=== PATIENT | female | born 1990 | race Caucasian/White ===

== ENCOUNTER 2023-03-20 18:58 | Emergency (ER) | payer MEDICAID ==
[~2023-03-20] VITALS: Ht 165.1 cm; Wt 127.3 kg
[~2023-03-20 18:58] MED LIST: AZITTAB11 OR; CIP03OS OP
[2023-03-20 20:39] LABS: Alanine Aminotransferase 20 U/L (7-40); Albumin 3.8 g/dL (3.2-4.8); Alkaline Phosphatase 88 U/L (46-116); Anion Gap 9 (5-15); Aspartate Aminotransferase 15 U/L (13-40); BUN/Creatinine Ratio 20.8 (10.0-20.0); Bilirubin, Total 0.4 mg/dL (0.2-1.0); Blood Urea Nitrogen 16 mg/dL (9-23); Calcium 9.1 mg/dL (8.7-10.4); Carbon Dioxide 22 mmol/L (20-30); Chloride 108 mmol/L (98-107); Glucose 94 mg/dL (74-106); Sodium 139 mmol/L (136-145); Total Protein 6.1 g/dL (5.7-8.2)
[2023-03-20 20:40] LABS: Basophils # (auto) 0.1 10 ^3/uL (0-0.2); Eosinophils # (auto) 0.1 10 ^3/uL (0-0.8); Mean Corpuscular Hgb Conc. 32.7 g/dL (32.0-36.0)
[2023-03-20 20:41] LABS: Basophils % (auto) 0.3 % (0.0-2.0); Eosinophils % (auto) 0.6 % (0.0-7.0); Hematocrit 37.8 % (36.0-46.0); Hemoglobin 12.4 g/dL (12.2-16.2); Lymphocytes % (auto) 12.4 % (10.0-50.0); Mean Corpuscular Hemoglobin 26.4 pg (28.0-32.0); Mean Corpuscular Volume 80.8 fL (80.0-100.0); Monocytes # (auto) 1.3 10 ^3/uL (0-1.3); Monocytes % (auto) 8.1 % (0.0-12.0); Neutrophils % (auto) 78.6 % (37.0-80.0); Red Blood Cells 4.68 10^6/uL (4.0-5.20); Red Cell Distribution Width 15.8 % (11.8-14.3); White Blood Cell 16.6 10^3/uL (4.4-10.8)
[2023-03-21] MEDS ORDERED: HYDROcodone-ACET 5/325MG TAB PO ONE (03:30)
[2023-03-21] MEDS ORDERED: HYDROcodone-ACET 10/325MG TAB PO ONE (03:30)
[2023-03-21 04:00] LABS: Urine Bacteria NONE SEEN /hpf (None Seen); Urine Blood 3+ /uL (Negative); Urine Clarity Clear (Clear); Urine Color Yellow (Yellow); Urine Mucus FEW (None Seen); Urine Protein, UAD Negative (Negative); Urine Specific Gravity 1.017 (1.001-1.035); Urine Urobilinogen Normal (Negative); Urine WBC 30 /hpf (0 - 5); Urine pH 5.5 (5.0-8.0)
[2023-03-21] MEDS ORDERED: cefTRIAXone SOD 1,000 MG VL IM ONE (05:30)
[2023-03-21 05:46] VITALS: BP 148/88; PULSE 66; RESP 14; TEMP 98.2; O2SAT 99
== END 2023-03-21 05:54 | disposition home or self-care (01) ==
LOC: EDBD 18:58 → ER 18:58
DX: N39.0 Urinary tract infection, site not specified (principal); D72.829 Elevated white blood cell count, unspecified; R55 Syncope and collapse; R10.2 Pelvic and perineal pain; Z79.899 Other long term (current) drug therapy
CPT/HCPCS: 36415; 70450; 71045; 80053; 81001; 84484; 84702; 85025; 93005; 96372; 99285; J0696

== ENCOUNTER 2025-04-14 20:28 | Inpatient (IN) | payer MEDICAID ==
[~2025-04-14] VITALS: Ht 165.1 cm; Wt 135.4 kg
[~2025-04-14 20:28] MED LIST changes: +CHOL1TAB30 PO; +LISI10TA34 PO; +TIRZ5INJ2 SC
[2025-04-14 22:45] LABS: Hematocrit 42.6 % (36.0-46.0); Hemoglobin 14.0 g/dL (12.2-16.2); Mean Corpuscular Hemoglobin 27.3 pg (28.0-32.0); Mean Corpuscular Volume 82.9 fL (80.0-100.0); Nucleated Red Blood Cells % 0.1 %
[2025-04-14 23:08] LABS: Alanine Aminotransferase 36 U/L (7-40); Albumin 4.1 g/dL (3.2-4.8); Alkaline Phosphatase 102 U/L (46-116); Anion Gap 13 (5-15); BUN/Creatinine Ratio 14.3 (10.0-20.0); Blood Urea Nitrogen 10 mg/dL (9-23); Calcium 9.4 mg/dL (8.7-10.4); Carbon Dioxide 20 mmol/L (20-31); Chloride 107 mmol/L (98-107); Glucose 89 mg/dL (74-106); Lipase 42 U/L (12-53); Potassium 4.1 mmol/L (3.5-5.1); Sodium 140 mmol/L (136-145); Total Protein 7.3 g/dL (5.7-8.2)
[2025-04-14 23:09] LABS: Bilirubin, Total 0.4 mg/dL (0.2-1.0)
--- NOTE | 2025-04-15 00:01 | DVH ---
INDICATION: epig pain TECHNIQUE: Multiple real-time sonographic images were obtained of the right upper quadrant. COMPARISON: None FINDINGS: The liver demonstrates normal homogeneous echotexture without focal mass lesions. The liver measures 16.3 cm. Normal hepatopetal portal venous flow identified. No evidence of pleural effusion or abdominal ascites. There is no intrahepatic or extrahepatic ductal dilatation. The common duct measures 0.3 cm. 2.6 x 2.1 x 0.6 cm echogenic shadowing structure within the neck of the gallbladder. Multiple non echogenic shadowing structures identified within the gallbladder body. The gallbladder wall measures 0.3 cm and is within normal limits. Negative sonographic Hunt's sign. The right kidney measures 10.1 cm. The right kidney is normal in contour, size, and shape. The echogenicity is normal. There is no hydronephrosis. The pancreas is not well visualized due to overlying bowel gas. IMPRESSION: 1. Cholelithiasis without sonographic evidence of acute cholecystitis.
[2025-04-15] MEDS: SODIUM CHLORIDE 0.9% 1,000 ML IV ONE (00:15)
--- NOTE | 2025-04-15 00:28 | DVH ---
CHEST RADIOGRAPH Indication: epig pain Technique: Single frontal view of the chest was obtained COMPARISON: XY CHEST XRAY 1 VIEW on DOS: 03/20/23 FINDINGS: Lines and Tubes: None Lungs: Clear Pleura: No effusion. No pneumothorax. Cardiomediastinal contours: Unremarkable Bones: Unremarkable IMPRESSION: 1. No acute disease.
--- NOTE | 2025-04-15 00:44 | ED.PDOC ---
GI ASSESSMENT HPI Comments Patient is a 35-year-old female with past medical history of hypertension, cholelithiasis, questionable hepatosplenomegaly, who comes in due to midepigastric abdominal pain. According to the patient, the pain started about 10:00 p.m. on 12/13/2024, she localizes the pain to the midepigastrium with radiation to the right upper quadrant, 10/10 at the time of onset, sharp without any exacerbating or relieving factors and associated with nausea. Denies similar symptoms in the past. On review of systems patient is complaining of nausea and abdominal pain. Past medical history: Hypertension, cholelithiasis, hepatosplenomegaly in the past Past surgical history: Denies Home medications: Lisinopril, Zepbound, ibuprofen Social & Personal history: Denies smoking, alcohol, drugs. Lives at home. Allergies: Denies Patient seen and examined at bedside. Patient is alert and oriented to time, place person and responding to all questions. Eyes: No Pain, No Vision change, No Conjunctivae inflammation, No Eyelid inflammation, No Other, No Redness ENT: No Ear pain, No Ear discharge, No Nose pain, No Nose discharge, No Nose congestion, No Mouth pain, No Mouth swelling, No Throat pain, No Throat swelling, No Other Cardiovascular: No Chest Pain, No Palpitations, No Orthopnea, No Paroxysmal No Dyspnea, No Edema, No Lt Headedness, No Other Respiratory: No Cough, No Dry, No Shortness of breath, No SOB with exertion, No Wheezing, No Hemoptysis, No Pleuritic Pain, No Sputum, No Other Gastrointestinal: Nausea, No Vomiting, Abdominal Pain, No Diarrhea, No Constipation, No Melena, No Hematochezia, No Other Genitourinary: No Dysuria, No Frequency, No Incontinence, No Hematuria, No Retention, No Other Musculoskeletal: No other, No neck pain, No shoulder pain, No arm pain, No back pain, No hand pain, No leg pain, No foot pain Skin: No Rash, No Lesions, No Jaundice, No Bruising, No Other Attestation note: Dr. Hudson: I was the supervising attending for this ED encounter. Please see the resident's notes. I was available for questions and consultations. Differential diagnosis: DDX include Diverticulitis, colitis, gastroenteritis, acute abdomen, SBO, enteritis, constipation, volvulus, appendicitis, Gallbladder disease, choledocolithiasis, ascending cholangitis, pancreatitis, intraAbdominal mass/ne oplasm, hepatitis, UTI, pylonephritis, kidney stone, aneurysm, dissection, Inflammatory bowel disease, gastroparesis, ischemic bowel,,,,,, Food poisoning, bacterial/parasitic/viral etiology, trauma, diabetes DKA, ovarian torsion, ovarian cyst/mass, tubo-ovarian abscess, , ectopic , PID, STD. MDM: MDM: patient presented with the above HPI.---abdominal pain---workup was initiated. patient was found with the above mentioned diagnosis. the following medications were ordered: please refer to order lists of meds and tests obtained by myself Dr. Hduson. Patient ED course and VS have been stabilized. Patient has been reassessed in the ED and remained in a stable condition. Pertinent incidental findings were discussed with the patient and/or family. Patient/family voices understanding and is agreeable with plan. Patient has been observed in the ED adequate length of time to insure improvement/stability. Escalation of care considered: Consideration of escalation to observation or admission Sepsis protocol was initiated. Patient was given Zosyn. Fluids. Zofran. GI cocktail. Patient was ADMITTED to the medicine team for further evaluation and treatment of their presentation. All the reports of any imaging studies that were ordered by myself were reviewed by myself. Chief Complaint: Abdominal Pain Time Seen by MD: 23:45 Primary Care Provider: MELLISSA MAGAÑA Reviewed Notes: Allergies Allergies: Coded Allergies: NO KNOWN ALLERGIES (Unverified , 03/10/12) Home Meds Reported Medications Tirzepatide (Zepbound) 5 Mg/0.5 Ml Inj, 5 MG SC QWEEKLY for 28 Days, #2 04/16/25 Cholecalciferol (Gnp Vitamin D) 1,000 Unit Tab, 1 TAB PO DAILY for 30 Days, #30 04/16/25 Lisinopril (Lisinopril) 10 Mg Tab, 1 TAB PO DAILY for 30 Days, #30 04/16/25 Information Source: Patient Mode of Arrival: Ambulatory Past Medical History PAST MEDICAL HISTORY: Denies Past Medical History (Contd): Hypertension, cholelithiasis, hepatosplenomegaly Surgical History: Denies all surgeries 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 Family History Family History: Reviewed,noncontributory to illness Social History Smoker: Non-Smoker Alcohol: Denies ETOH Use Drugs: Denies Drug Use Lives In: Home Constitutional: denies: chills, diaphoresis, fatigue, fever, malaise, sweats, weakness, others EENTM: denies: blurred vision, double vision, ear bleeding, ear discharge, ear drainage, ear pain, ear ringing, eye pain, eye redness, hearing loss, mouth pain, mouth swelling, nasal discharge, nose bleeding, nose congestion, nose pain, photophobia, tearing, throat pain, throat swelling, voice changes, others Respiratory: denies: cough, hemoptysis, orthopnea, SOB at rest, shortness of breath, SOB with excertion, stridor, wheezing, others Cardiovascular: denies: chest pain, dizzy spells, diaphoresis, Dyspnea on exertion, edema, irregular heart beat, left arm pain, lightheadedness, palpitations, PND, syncope, others Gastrointestinal: reports: abdominal pain, nausea; denies: abdomen distended, blood streaked bowels, constipated, diarrhea, dysphagia, difficulty swallowing, hematemesis, melena, poor appetite, poor fluid intake, rectal bleeding, rectal pain, vomiting, others Genitourinary: denies: abnormal vagina bleeding, burning, dyspareunia, dysuria, flank pain, frequency, hematuria, incontinence, pain, , vagina discharge, urgency, others Neurological: denies: dizziness, fainting, headache, left sided numbness, left sided weakness, numbness, paresthesia, pre-existing deficit, right sided numbness, right sided weakness, seizure, speech problems, tingling, tremors, weakness, others Musculoskeletal: denies: back pain, gout, joint pain, joint swelling, muscle pain, muscle stiffness, neck pain, others Integumetry: denies: bruises, change in color, change in hair/nails, dryness, laceration, lesions, lumps, rash, wounds, others Allergic/Immunocompromised: denies: Difficulty Healing, Frequent Infections, Hives, Itching, others Hematologic/Lymphatic: denies: anemia, blood clots, easy bleeding, easy bruising, swollen glands, others Endocrine: denies: excessive hunger, excessive sweating, excessive thirst, excessive urination, flushing, intolerance to cold, intolerance to heat, unexplained weight gain, unexplained weight loss, others Psychiatric: denies: anxiety, bipolar disorder, depression, hopeless, panic disorder, schizophrenia, sleepless, suicidal, others Physical Exam General Appearance: Mild Distress HEENT: Normal ENT Inspection, PERRL/EOMI Neck: Non-Tender, Normal, Normal Inspection Respiratory: Lungs Clear, No Accessory Muscle Use, No Respiratory Distress Cardiovascular: No JVD, No Murmur, No Gallop, Tachycardia Breast Exam: Deferred Gastrointestinal: Epigastric, No Pulsatile Mass, Normal Bowel Sounds, RUQ, Tenderness Genitalia: Deferred Pelvic: Deferred Rectal: Rectal Exam not done Extremities: No calf tenderness, Normal capillary refill, Normal inspection, Normal range of motion, Non-tender, No pedal edema Neurologic: Alert, No Motor Deficits, Normal Mood, No Sensory Deficits Cerebellar Function: NOT DONE Reflexes: NOT DONE Skin: Dry, Normal Color, Warm Peripheral Pulses: 2+ dorsalis pedis (R), 2+ dorsalis pedis (L) Lymphatic: NOT DONE Was a procedure done? Was a procedure done?: No GI differential Dx Differential Diagnosis: Cholecystitis, Diverticular disease, Gastritis/PUD, Gastroenteritis X-Ray, Labs, Meds, VS Vital Signs Date Time Temp Pulse Resp B/P (MAP) Pulse Ox O2 Delivery O2 Flow Rate FiO2 04/14/25 20:47 97.8 11 24 151/88 98 97.8 04/14/25 20:36 113 Lab Test 04/15/25 01:15 04/15/25 00:50 04/14/25 22:46 04/14/25 20:45 Range/Units Urine Color Yellow Yellow Urine Clarity Turbid H Clear Urine pH 8.5 5.0-9.0 Urine Specific [place] 1.027 1.001-1.035 Urine Protein 1+ H Negative Urine Ketones Negative Negative Urine Blood Negative Negative /uL Urine Nitrite Negative Negative Urine Bilirubin Negative Negative Urine Urobilinogen 2 H Negative mg/dL Urine Leukocyte Esterase Negative Negative /uL Urine RBC 8 0 - 4 /hpf Urine Microscopic WBC < 1 0-5 /HPF Urine Squamous Epithelial Cells Few <5 /hpf Urine Amorphous Crystals Few None Seen /hpf Urine Bacteria None seen None Seen /hpf Urine Glucose Normal Normal mg/dL Urine Test Negative Negative Urine Opiates Screen Neg NEGATIVE Urine Fentanyl Screen Neg NEGATIVE Urine Barbiturates Screen Neg NEGATIVE Urine Phencyclidine Screen Neg NEGATIVE Urine Amphetamines Screen Neg NEGATIVE Urine Benzodiazepines Screen Neg NEGATIVE Urine Cocaine Screen Neg NEGATIVE Urine Cannabinoids Screen Neg NEGATIVE Lactic Acid Level 1.6 2.8 *H 0.4-2.0 mmol/L Troponin I High Sensitivity < 3 L < 3 L < 3 L </=34 ng/L White Blood Count 14.2 H 4.4-10.8 10^3/uL Red Blood Count 5.14 4.0-5.20 10^6/uL Hemoglobin 14.0 12.2-16.2 g/dL Hematocrit 42.6 36.0-46.0 % Mean Corpuscular Volume 82.9 80.0-100.0 fL Mean Corpuscular Hemoglobin 27.3 L 28.0-32.0 pg Mean Corpuscular Hemoglobin Concent 32.9 32.0-36.0 g/dL Red Cell Distribution Width 15.1 H 11.8-14.3 % Platelet Count 354 140-450 10^3/uL Mean Platelet Volume 7.7 6.9-10.8 fL Neutrophils (%) (Auto) 64.6 37.0-80.0 % Lymphocytes (%) (Auto) 26.4 10.0-50.0 % Monocytes (%) (Auto) 7.0 0.0-12.0 % Eosinophils (%) (Auto) 1.0 0.0-7.0 % Basophils (%) (Auto) 1.0 0.0-2.0 % Neutrophils # (Auto) 9.2 H 1.6-8.6 10 ^3/uL Lymphocytes # (Auto) 3.7 0.4-5.4 10 ^3/uL Monocytes # (Auto) 1.0 0-1.3 10 ^3/uL Eosinophils # (Auto) 0.1 0-0.8 10 ^3/uL Basophils # (Auto) 0.1 0-0.2 10 ^3/uL Nucleated Red Blood Cells 0.1 % Sodium Level 140 136-145 mmol/L Potassium Level 4.1 3.5-5.1 mmol/L Chloride Level 107 98-107 mmol/L Carbon Dioxide Level 20 20-31 mmol/L Anion Gap 13 5-15 Blood Urea Nitrogen 10 9-23 mg/dL Creatinine 0.70 0.550-1.02 mg/dL Glomerular Filtration Rate Calc 114 >90 mL/min BUN/Creatinine Ratio 14.3 10.0-20.0 Serum Glucose 89 74-106 mg/dL Calcium Level 9.4 8.7-10.4 mg/dL Total Bilirubin 0.4 0.2-1.0 mg/dL Aspartate Amino Transferase (AST) 64 H 13-40 U/L Alanine Aminotransferase (ALT) 36 7-40 U/L Alkaline Phosphatase 102 46-116 U/L Total Protein 7.3 5.7-8.2 g/dL Albumin 4.1 3.2-4.8 g/dL Lipase 42 12-53 U/L Microbiology Date/Time Source Procedure Growth Status 04/15/25 01:28 Blood Blood Culture - Preliminary Resulted 04/15/25 01:27 Blood Blood Culture - Preliminary Resulted [place] [address] Ph: [phone] DIAGNOSTIC IMAGING Diagnostic Imaging Report : [id number] Signed PATIENT: DEENA EDOUARD ACCT: [id number] UNIT: [id number] : 1990 LOC: ER ROOM / BED: / AGE / SEX: 35 / F ADM STATUS: REG ER SERVICE 29 ORDERING PHYSICIAN: ALIE HUDSON DO PROCEDURE(s): CXRP - CHEST PORTABLE REASON: epig pain ORDER NUMBER(s): [id number], ACCESSION NUMBER(s): [id number] CHEST RADIOGRAPH Indication: epig pain Technique: Single frontal view of the chest was obtained COMPARISON: XY CHEST XRAY 1 VIEW on DOS: 03/20/23 FINDINGS: Lines and Tubes: None Lungs: Clear Pleura: No effusion. No pneumothorax. Cardiomediastinal contours: Unremarkable Bones: Unremarkable IMPRESSION: 1. No acute disease. ATED BY: AROLDO PALOMO MD DICTATED DATE/TIME: 04/15/2524 SIGNED BY: AROLDO PALOMO MD SIGNED DATE/TIME: 04/15/2524 CC: [place] [address] Ph: [phone] DIAGNOSTIC IMAGING Diagnostic Imaging Report : [id number] Signed PATIENT: DEENA EDOUARD ACCT: [id number] UNIT: [id number] : 1990 LOC: ER ROOM / BED: / AGE / SEX: 35 / F ADM STATUS: REG ER SERVICE 2230 ORDERING PHYSICIAN: ALIE HUDSON DO PROCEDURE(s): ABDL - ABDOMEN LIMITED REASON: epig pain ORDER NUMBER(s): [id number], ACCESSION NUMBER(s): [id number] INDICATION: epig pain TECHNIQUE: Multiple real-time sonographic images were obtained of the right upper quadrant. COMPARISON: None FINDINGS: The liver demonstrates normal homogeneous echotexture without focal mass lesions. The liver measures 16.3 cm. Normal hepatopetal portal venous flow identified. No evidence of pleural effusion or abdominal ascites. There is no intrahepatic or extrahepatic ductal dilatation. The common duct measures 0.3 cm. 2.6 x 2.1 x 0.6 cm echogenic shadowing structure within the neck of the gallbladder. Multiple non echogenic shadowing structures identified within the gallbladder body. The gallbladder wall measures 0.3 cm and is within normal limits. Negative sonographic Hunt's sign. The right kidney measures 10.1 cm. The right kidney is normal in contour, size, and shape. The echogenicity is normal. There is no hydronephrosis. The pancreas is not well visualized due to overlying bowel gas. IMPRESSION: 1. Cholelithiasis without sonographic evidence of acute cholecystitis. ATED BY: AROLDO PALOMO MD DICTATED DATE/TIME: 04/14/252358 SIGNED BY: AROLDO PALOMO MD SIGNED DATE/TIME: 04/14/252358 CC: [place] [address] Ph: [phone] DIAGNOSTIC IMAGING Diagnostic Imaging Report : [id number] Signed PATIENT: DEENA EDOUARD ACCT: [id number] UNIT: [id number] : 1990 LOC: EAST ROOM / BED: 0250 / B AGE / SEX: 35 / F ADM STATUS: ADM IN SERVICE 0700 ORDERING PHYSICIAN: HOME RODRIGUEZ PROCEDURE(s): ABPL - CT AB PEL WO CON-NO ORAL OR IV REASON: Left lower quadrant pain ORDER NUMBER(s): [id number], ACCESSION NUMBER(s): [id number] CLINICAL HISTORY: Left lower quadrant pain TECHNIQUE: CT of the abdomen and pelvis was performed without IV contrast. This exam was performed according to our departmental dose optimization program. Up-to-date CT equipment and radiation dose reduction techniques are utilized as appropriate. CTDI 27 DLP 1400 COMPARISON: None FINDINGS: Abdomen/Pelvis: The spleen, pancreas, adrenal glands, liver, kidneys, and bladder are grossly unremarkable. There is a 2.6 cm gallstone. There are numerous uterine masses, compatible with uterine fibroids The abdominal aorta is normal in course and caliber. There are no significant atherosclerotic calcifications. There is no free intraperitoneal air or fluid. There is no enlarged abdominal pelvic lymph node. There is no bowel wall thickening or dilatation. The appendix is normal. There is a small fat containing umbilical hernia. Other: The imaged lower thorax is unremarkable. No acute osseous abnormality is evident. IMPRESSION: No acute noncontrast CT abnormality in the abdomen / pelvis. Fibroid uterus. 2.6 cm gallstone. ATED BY: SOFIE VELASQUEZ MD DICTATED DATE/TIME: 04/17/25946 SIGNED BY: SOFIE VELASQUEZ MD SIGNED DATE/TIME: 04/17/25946 CC: Time of 1ST Reevaluation: 00:45 Reevaluation 1ST: Unchanged Patient Education/Counseling: Diagnosis, Treatment, Prognosis, Need For Follow Up Family Education/Counseling: Diagnosis, Treatment, Prognosis, Need For Follow Up SEPSIS Sepsis Screen Date sepsis recognized/suspect: Apr 14, 2025 Time Sepsis recognized/suspect: 2049 Recent Procedure: No On Antibiotic Therapy: No Respiratory Rate >20: No Heart Rate >90: No Temp<36 C (96.8 F) or >38.3 C: No SBP <90 or MAP <65 mmHG: No New Acute Mental Status Change: No Is the patient on CPAP, BIPAP,: No Physician Orders Electrocardigram (04/14/25 20:46) Electrocardigram (04/14/25 21:46) Electrocardigram (04/14/25 23:46) [employer] (04/14/25 ) Chest Portable (04/14/25 22:30) Abdomen Limited (04/14/25 22:30) Blood Culture (04/15/25 01:00) Notify Md If Map <65 Or Bp<90 (04/15/25 01:00) If Map<65 Start Vasopressor (04/15/25 01:00) Sepsis Reassesment After Fluid (04/15/25 02:00) Vital Signs Date Time Temp Pulse Resp B/P (MAP) Pulse Ox O2 Delivery O2 Flow Rate FiO2 04/14/25 20:47 97.8 11 24 151/88 98 97.8 04/14/25 20:36 113 Laboratory Tests Test 04/14/25 20:45 04/15/25 00:50 Lactic Acid Level 2.8 mmol/L (0.4-2.0) *H 1.6 mmol/L (0.4-2.0) White Blood Count 14.2 10^3/uL (4.4-10.8) H Departure 1 Departure Time of Disposition: 01:00 Impression: Primary Impression: Abdominal pain Qualified Codes: R10.13 - Epigastric pain Additional Impressions: Cholelithiasis Qualified Codes: K80.20 - Calculus of gallbladder without cholecystitis without obstruction Fibroid uterus Sepsis Leukocytosis Disposition: ADMITTED INPATIENT Admit to: [facility] Condition: Guarded Discharged With: Self Critical Care Note Critical Care Time?: Yes (45 min-critical care time only) Critical care comment: Due to a high probability of clinically significant, life threatening deterioration, the patient required my highest level of preparedness to intervene emergently and I personally spent this critical care time directly and personally managing the patient. This critical care time included obtaining a history; examining the patient; pulse oximetry; ordering and review of studies; arranging urgent treatment with development of a management plan; evaluation of patient's response to treatment; frequent reassessment; and, discussions with other providers. This critical care time was performed to assess and manage the high probability of imminent, life-threatening deterioration that could result in multi-organ failure. It was exclusive of separately billable procedures and treating other patients and teaching time. Please see my other sections and the rest of the note for further information on patient assessment and treatment. Stability Stability form required: No Heart Score Heart Score: Heart Score Response (Comments) Value History N/A 0 EKG N/A 0 Age N/A 0 Risk Factors N/A 0 Troponin N/A 0 Total 0 REZA ALEXANDER Apr 15, 2025 00:44 ALIE HUDSON DO Apr 16, 2025 02:46
[2025-04-15 00:53] LABS: Lactic Acid w/Reflex 2.8 mmol/L (0.4-2.0)
[2025-04-15] MEDS: SODIUM CHLORIDE 0.9% 2,000 ML IV ONE (01:19)
[2025-04-15] MEDS: PIPERACILLIN-TAZOB 3.375GM 100 ML IV ONE (01:24)
[2025-04-15] MEDS: PANTOPRAZOLE 40 MG TAB PO ONE (01:25)
[2025-04-15] MEDS: ONDANSETRON HCL 4 MG/2 ML VIAL IV ONE (01:25)
[2025-04-15] MEDS: LIDOCAINE VISCOUS 2% 15ML UD PO ONE (01:32)
[2025-04-15] MEDS: SUCRALFATE 1 GM TAB PO ONE (01:32)
[2025-04-15 02:05] LABS: Urine Amorphous Crystal FEW /hpf (None Seen); Urine Protein, UAD 1+ (Negative)
--- NOTE | 2025-04-15 02:08 | DVHHPRES ---
History of Present Illness Resident Creating Document: DEANGELO CORRAL RESIDENT History of Present Illness Mar Keller, a 35-year-old female with past medical history of gallstone, hypertension controlled by low-dose lisinopril, vitamin-D deficiency, incidental thyroid nodule with no hypo or hyperthyroidism, cholecystectomy presented to the ER with the complaints of epigastric and chest pain radiating to neck since this morning. She described the pain as pressure-like and sharp. She is also complaining of nausea and dizziness. She denies any fever, cough, shortness of breath, sick contacts or recent travel history. Past medical and surgical history: As above Menstrual history: LMP 18 March, regular Allergies: None Home medications: low-dose lisinopril, vitamin-D, ibuprofen Smoke/marijuana: 15 years ago used to smoke marijuana and cigarettes Alcohol: Never PCP Dr. Charlene Strong Full code Review of Systems Gastrointestinal: Nausea, Vomiting, Abdominal Pain Allergies: Coded Allergies: NO KNOWN ALLERGIES (Unverified , 03/10/12) Medications Current Medications Medications Dose Ordered Sig/Cy Route Start Time Stop Time Status Last Admin Dose Admin Piperacillin Sod/ Tazobactam Sod 100 ml @ 25 mls/hr Q8HR IV 04/15/25 06:00 UNV Exam Vital Signs Vital Signs Date Time Temp Pulse Resp B/P (MAP) Pulse Ox O2 Delivery O2 Flow Rate FiO2 04/14/25 20:47 97.8 11 24 151/88 98 97.8 Exam Pt is lying on bed General Appearance: Alert, Oriented X3, Cooperative, Mild distress HEENT: Atraumatic, Mucous membranes moist/pink Respiratory: Clear to auscultation, Normal air movement, No added sounds Cardiovascular: Regular rate, Normal S1, Normal S2, No murmurs Abdominal/ : Active bowel sounds, Soft, no distention, epigastric tenderness, Hunt sign negative Extremities: No edema, Normal pulses, No tenderness/swelling Skin: No Significant rash, except past surgical scars Neuro: Normal speech, sensorimotor deficits none Psych/Mental Status: Mental status NL, Mood NL Nurse was there as packer dried beef during examination Labs/Xrays Labs Test 04/15/25 01:15 04/15/25 00:50 04/14/25 20:45 Range/Units Urine Color Yellow Yellow Urine Clarity Turbid H Clear Urine pH 8.5 5.0-9.0 Urine Specific Start 1.027 1.001-1.035 Urine Protein 1+ H Negative Urine Ketones Negative Negative Urine Blood Negative Negative /uL Urine Nitrite Negative Negative Urine Bilirubin Negative Negative Urine Urobilinogen 2 H Negative mg/dL Urine Leukocyte Esterase Negative Negative /uL Urine RBC 8 0 - 4 /hpf Urine Microscopic WBC < 1 0-5 /HPF Urine Squamous Epithelial Cells Few <5 /hpf Urine Amorphous Crystals Few None Seen /hpf Urine Bacteria None seen None Seen /hpf Urine Glucose Normal Normal mg/dL Urine Test Negative Negative Lactic Acid Level 1.6 0.4-2.0 mmol/L Troponin I High Sensitivity < 3 L </=34 ng/L White Blood Count 14.2 H 4.4-10.8 10^3/uL Red Blood Count 5.14 4.0-5.20 10^6/uL Hemoglobin 14.0 12.2-16.2 g/dL Hematocrit 42.6 36.0-46.0 % Mean Corpuscular Volume 82.9 80.0-100.0 fL Mean Corpuscular Hemoglobin 27.3 L 28.0-32.0 pg Mean Corpuscular Hemoglobin Concent 32.9 32.0-36.0 g/dL Red Cell Distribution Width 15.1 H 11.8-14.3 % Platelet Count 354 140-450 10^3/uL Mean Platelet Volume 7.7 6.9-10.8 fL Neutrophils (%) (Auto) 64.6 37.0-80.0 % Lymphocytes (%) (Auto) 26.4 10.0-50.0 % Monocytes (%) (Auto) 7.0 0.0-12.0 % Eosinophils (%) (Auto) 1.0 0.0-7.0 % Basophils (%) (Auto) 1.0 0.0-2.0 % Neutrophils # (Auto) 9.2 H 1.6-8.6 10 ^3/uL Lymphocytes # (Auto) 3.7 0.4-5.4 10 ^3/uL Monocytes # (Auto) 1.0 0-1.3 10 ^3/uL Eosinophils # (Auto) 0.1 0-0.8 10 ^3/uL Basophils # (Auto) 0.1 0-0.2 10 ^3/uL Nucleated Red Blood Cells 0.1 % Sodium Level 140 136-145 mmol/L Potassium Level 4.1 3.5-5.1 mmol/L Chloride Level 107 98-107 mmol/L Carbon Dioxide Level 20 20-31 mmol/L Anion Gap 13 5-15 Blood Urea Nitrogen 10 9-23 mg/dL Creatinine 0.70 0.550-1.02 mg/dL Glomerular Filtration Rate Calc 114 >90 mL/min BUN/Creatinine Ratio 14.3 10.0-20.0 Serum Glucose 89 74-106 mg/dL Calcium Level 9.4 8.7-10.4 mg/dL Total Bilirubin 0.4 0.2-1.0 mg/dL Aspartate Amino Transferase (AST) 64 H 13-40 U/L Alanine Aminotransferase (ALT) 36 7-40 U/L Alkaline Phosphatase 102 46-116 U/L Total Protein 7.3 5.7-8.2 g/dL Albumin 4.1 3.2-4.8 g/dL Lipase 42 12-53 U/L SEPSIS Sepsis Screen Date sepsis recognized/suspect: Apr 14, 2025 Time Sepsis recognized/suspect: 2049 Recent Procedure: No On Antibiotic Therapy: No Respiratory Rate >20: No Heart Rate >90: No Temp<36 C (96.8 F) or >38.3 C: No SBP <90 or MAP <65 mmHG: No New Acute Mental Status Change: No Is the patient on CPAP, BIPAP,: No Physician Orders Electrocardigram (04/14/25 20:46) Electrocardigram (04/14/25 21:46) Electrocardigram (04/14/25 23:46) Window Air Conditioner Installer (04/14/25 ) Drug Screen (04/14/25 22:30) Chest Portable (04/14/25 22:30) Abdomen Limited (04/14/25 22:30) Blood Culture (04/15/25 01:00) Notify Md If Map <65 Or Bp<90 (04/15/25 01:00) If Map<65 Start Vasopressor (04/15/25 01:00) Sepsis Reassesment After Fluid (04/15/25 02:00) Sodium Chloride 0.9% (04/15/25 01:00) Allergies (04/15/25 01:51) Code Status (04/15/25 01:51) Complete Blood Count (04/16/25 04:00) Comprehensive Metabolic Panel (04/16/25 04:00) Sequential Compression Device (04/15/25 ) Admit (04/15/25 01:51) Notify Of Changes From Base (04/15/25 01:51) Piperacillin-Tazob 3.375gm (Zosyn 3.375g (04/15/25 06:00) Npo (Nothing By Mouth) Diet (04/15/25 Breakfast) Morphine Sulfate Injection (04/15/25 02:15) Vital Signs Date Time Temp Pulse Resp B/P (MAP) Pulse Ox O2 Delivery O2 Flow Rate FiO2 04/14/25 20:47 97.8 11 24 151/88 98 97.8 04/14/25 20:36 113 Laboratory Tests Test 04/14/25 20:45 04/15/25 00:50 Lactic Acid Level 2.8 mmol/L (0.4-2.0) *H 1.6 mmol/L (0.4-2.0) White Blood Count 14.2 10^3/uL (4.4-10.8) H Medications Medications Dose Ordered Sig/Cy Route Start Time Stop Time Status Last Admin Dose Admin Lidocaine HCl 10 ml ONCE ONCE PO 04/15/25 00:15 04/15/25 00:16 DC 04/15/25 01:32 10 ML Ondansetron HCl 8 mg ONCE ONCE IV 04/15/25 00:15 04/15/25 00:16 DC 04/15/25 01:25 8 MG Pantoprazole Sodium 40 mg ONCE ONCE PO 04/15/25 00:15 04/15/25 00:16 DC 04/15/25 01:25 40 MG Piperacillin Sod/ Tazobactam Sod 100 ml @ 100 mls/hr ONCE ONCE IV 04/15/25 01:00 04/15/25 01:59 DC 04/15/25 01:24 100 MLS/HR Sodium Chloride 1,000 ml @ 1,000 mls/hr Q1H ONCE IV 04/15/25 00:15 04/15/25 01:14 DC 04/15/25 00:15 1,000 MLS/HR Sodium Chloride 2,000 ml @ 1,000 mls/hr Q2H ONCE IV 04/15/25 01:00 04/15/25 02:59 04/15/25 01:19 1,000 MLS/HR Sucralfate 1 gm ONCE ONCE PO 12/9/25 00:15 04/15/25 00:16 DC 04/15/25 01:32 1 GM Assessment/Plan Assessment/Plan Intractable abdominal pain IV fluid IV morphine CT abdomen pelvis: Cholelithiasis without sonographic evidence of acute cholecystitis. Consider HIDA scan and consult surgery if necessary Chest pain rule out ACS EKG no ischemic changes Troponinx3 WNL Hypertensive heart disease Lisinopril 5 mg Thyroid nodule Follow up outpatient with PCP and corporate law specialist GI prophylaxis: Pantoprazole DVT prophylaxis: SCDs Diet: NPO Goals of care discussed with the patient for more than 27 minutes: Full code status Case discussed with Dr. Zelaya, patient and RN Plan discussed with: Patient, Other (RN) My Orders Orders - DEANGELO CORRAL Procedure Category Date Status Time Allergies BYRON 04/15/25 In Process 01:51 Code Status CODE 04/15/25 Transmitted 01:51 Complete Blood Count LAB 04/16/25 Verified 04:00 Comprehensive LAB 04/16/25 Verified Metabolic Panel 04:00 Sequential BYRON 04/15/25 In Process Compression Device Admit ADMIT 04/15/25 Transmitted 01:51 Notify Md Of Changes [facility] 04/15/25 In Process From Base 01:51 Piperacillin-Tazob PHA 04/15/25 Logged 3.375gm (Zosyn 3.375g 06:00 Npo (Nothing By DIET 04/15/25 Transmitted Mouth) Diet Breakfast Morphine Sulfate PHA 04/15/25 Transmitted Injection 02:15 Visit Coding STANDARD RES Billing Provider: GUERO ZELAYA MD Date of Service if different f: Apr 15, 2025 Common Visit Codes: [id number] INP/OBS CARE (HIGH) Secondary Visit Codes: 32414-[id number] CARE PLAN 30 MINUTES DEANGELO CORRAL Apr 15, 2025 02:08
[2025-04-15 02:14] LABS: Barbiturate Scree,Urine Neg (NEGATIVE)
[2025-04-15 02:15] LABS: Amphetamine Screen, Urine Neg (NEGATIVE); Benzodiazephine Screen, Urine Neg (NEGATIVE); Cannabinoid Screen, Urine Neg (NEGATIVE); Cocaine Screen, Urine Neg (NEGATIVE); Phencyclidine Screen, Urine Neg (NEGATIVE)
[2025-04-15 03:44] LABS: Opiate Scree,Urine Neg (NEGATIVE)
[2025-04-15] MEDS: PIPERACILLIN-TAZOB 3.375GM 100 ML IV SCH (07:38)
[2025-04-15] MEDS: MORPHINE SULFATE 4 MG/ML SYR/VIAL IV PRN (07:38)
[2025-04-15 07:47] VITALS: PULSE 76; RESP 16; O2SAT 96
--- NOTE | 2025-04-15 10:12 | ECG ---
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
[2025-04-15] MEDS: LISINOPRIL 5 MG TAB PO SCH (10:25)
--- NOTE | 2025-04-15 10:40 | ECG ---
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
[2025-04-15 11:09] LABS: Hematocrit 40.3 % (36.0-46.0); Hemoglobin 13.4 g/dL (12.2-16.2); Mean Corpuscular Hemoglobin 27.8 pg (28.0-32.0); Mean Corpuscular Volume 83.4 fL (80.0-100.0); Nucleated Red Blood Cells % 0.1 %
[2025-04-15] MEDS: PANTOPRAZOLE 40 MG/10 ML VIAL INJ IV SCH (11:18)
[2025-04-15 11:21] LABS: Anion Gap 10 (5-15); BUN/Creatinine Ratio 13.0 (10.0-20.0); Blood Urea Nitrogen 9 mg/dL (9-23); Carbon Dioxide 22 mmol/L (20-31); Glucose 82 mg/dL (74-106); Potassium 4.2 mmol/L (3.5-5.1); Sodium 140 mmol/L (136-145); Total Protein 6.4 g/dL (5.7-8.2)
[2025-04-15 11:22] LABS: Albumin 3.8 g/dL (3.2-4.8)
[2025-04-15 11:23] LABS: INR 0.98 (0.9-1.15); Partial Thromboplastin Time 33.1 SEC (24.5-34.5); Prothrombin Time 10.4 sec (9.3-11.8)
[2025-04-15 11:28] LABS: Alanine Aminotransferase 463 U/L (7-40); Alkaline Phosphatase 226 U/L (46-116); Bilirubin, Total 1.3 mg/dL (0.2-1.0); Calcium 8.4 mg/dL (8.7-10.4); Chloride 108 mmol/L (98-107)
--- NOTE | 2025-04-15 16:31 | DVHPNRES ---
Progress Note Date Seen: Apr 15, 2025 Resident Creating Document: HOME RODRIGUEZ RESIDENT Medical Necessity Reason Pt with a Central, PICC or Fol: No Subjective Review of Systems Mar Keller is a 35-year-old female with past medical history of gallstones 6 years back, thyroid nodule, hypertension, migraines who came to the hospital with complaints of epigastric pain, shortness of breath, dizziness, tingling around the mouth One day prior. Patient reports that she was driving the car at 8:00 p.m. when she started having these symptoms and immediately came to the hospital because of uncontrollable pain. She describes the pain as sudden in onset, sharp, continuous, radiating to the chest and right neck with no aggravating or relieving factors. PMHx:gallstones 6 years back, thyroid nodule, hypertension, migraines PSHx: Nonrelevant Family history: nonrelevant Social history: 5 pack-year smoking history, stopped 15 years back. Denies alcohol or illicit drug use. Lives with family Home medication: lisinopril,Zepbound Allergic history: no known allergies CONSTITUTIONAL: Fever, night sweats, weight loss, Lymphadenopathy, ecchymoses, fatigue: Negative DERMATOLOGIC: Rash, New/growing/changing skin lesions: Negative HEENT: Vision change, eye pain, Rhinorrhea, sinus pain, epistaxis, dysphagia, odynophagia, globus sensation, Change in hearing, tinnitus, vertigo, otalgia, Dental problems, oral ulcers or lesions: : Negative ENDOCRINE: Weight change, heat or cold intolerance, tremor, insomnia, neck pain or swelling, Polyuria, polydipsia, polyphagia, Abnormal hair growth, change in nails: Negative CARDIOVASCULAR: Chest pain, palpitations, syncope, Edema, cyanosis, claudication, Orthopnea, paroxysmal nocturnal dyspnea: Negative PULMONARY: Shortness of breath, dyspnea with exertion, Cough, hemoptysis, wheezing, chest pain : Negative GI: complains of epigastric pain : Dysuria, frequency, urgency, Urinary incontinence, hematuria, foamy urine, nocturia, Change in libido, erectile dysfunction, Change in menses, dysmenorrhea, dyspaerunia, pelvic pain: : Negative MUSCULOSKELETAL: Joint swelling or pain, muscle pain, back pain: : Negative NEUROLOGIC: Headache, scotoma, Change in smell or taste, change in facial muscles, Muscle weakness, paresthesias, anesthesia, Ataxia, change in speech: Negative PSYCHIATRIC: Depression, anxiety, hallucinations, lois, suicidal/homicidal thoughts, Binging, purging: Negative Objective vital signs Vital Sign Date Time Temp Pulse Resp B/P (MAP) Pulse Ox O2 Delivery O2 Flow Rate FiO2 04/15/25 16:24 98.0 71 16 145/93 (110) 98 98.0 04/15/25 07:47 Room Air* 0 21 medications Current Medications Medications Dose Ordered Sig/Cy Route Start Time Stop Time Status Last Admin Dose Admin Piperacillin Sod/ Tazobactam Sod 100 ml @ 25 mls/hr Q8HR IV 04/15/25 06:50 04/15/25 14:36 25 MLS/HR Morphine Sulfate 1 mg Q6HP PRN IV 04/15/25 02:30 04/15/25 07:38 1 MG Lisinopril 5 mg DAILY PO 04/15/25 10:00 04/15/25 10:25 5 MG Pantoprazole Sodium 40 mg DAILY IV 04/15/25 10:00 04/15/25 11:18 40 MG Sucralfate 1 gm BID@0600,2200 PO 04/15/25 22:00 Examination General Appearance: Alert, Oriented X3, Cooperative, No acute distress HEENT: Atraumatic, PERRLA, EOMI, Mucous membrane moist/pink Respiratory: Clear to auscultation, Normal air movement Cardiovascular: Regular rate, Normal S1, Normal S2, No murmurs, chest wall tenderness present Abdominal: tenderness in the left upper quadrant Extremities: No clubbing, No cyanosis, No edema, Normal pulses, No tenderness/swelling Skin: No rashes, No breakdown, No significant lesion Neuro: Normal gait, Normal speech, Strength at 5/5 X4 ext, Normal tone, Sensation intact, Cranial nerves 3-12 NL, Reflexes 2+ Psych/Mental Status: Mental status NL, Mood NL laboratory and microbiology Laboratory Tests 04/15/25 10:45 Test 04/15/25 10:45 Range/Units Serum Glucose 82 74-106 mg/dL Problem List/Assessment/Plan Problem List/Assessment/Plan Assessment/Plan Symptomatic cholelithiasis IV fluid IV morphine CT abdomen pelvis: Cholelithiasis without sonographic evidence of acute cholecystitis. Consider HIDA scan full liquid diet Surgery consult Chest pain ruled out ACS EKG no ischemic changes Troponinx3 WNL Essential hypertension Lisinopril 5 mg Thyroid nodule, normothyroid Follow up outpatient with PCP and insulation machine operator Migraine Follow up with PCP on discharge GI prophylaxis: Pantoprazole DVT prophylaxis: SCDs Diet: Full liquid diet Goals of care Full code status Case discussed with Dr. Mullen Plan discussed with: Patient My Orders My Orders Orders - HOME RODRIGUEZ Procedure Category Date Status Time * Surgical Consult CONS 04/15/25 Transmitted Full Liq Diet DIET 04/15/25 Transmitted Lunch Sucralfate Susp PHA 04/15/25 In Process (Carafate Susp) 22:00 Date of Service: Apr 15, 2025 Billing Provider: AMALIA ALAMO MD Common Visit Codes: [id number] INP/OBS CARE(HIGH) HOME RODRIGUEZ Apr 15, 2025 16:31
[2025-04-15 17:00] VITALS: BP 130/81; PULSE 76; RESP 16; TEMP 98.1; O2SAT 98
[2025-04-15 18:37] VITALS: BP 130/81; PULSE 76; RESP 16; TEMP 98.1; O2SAT 98
[2025-04-15 21:00] VITALS: BP 117/77; PULSE 84; RESP 19; TEMP 98.1; O2SAT 98
[2025-04-15] MEDS: SUCRALFATE 1 GM/10 ML ORAL SUSP PO SCH (21:24)
[2025-04-15] MEDS: ACETAMINOPHEN 325 MG TAB PO PRN (23:03)
[2025-04-16] VITALS (7 sets, daily range): BP systolic 106–143; BP diastolic 67–87; PULSE 63–80; RESP 16–19; TEMP 97.7–98.2; O2SAT 94–99
[2025-04-16 06:16] LABS: Hematocrit 39.2 % (36.0-46.0); Hemoglobin 13.0 g/dL (12.2-16.2); Mean Corpuscular Hemoglobin 27.9 pg (28.0-32.0); Mean Corpuscular Volume 83.8 fL (80.0-100.0); Nucleated Red Blood Cells % 0.0 %
[2025-04-16 06:29] LABS: Albumin 3.9 g/dL (3.2-4.8); BUN/Creatinine Ratio 9.0 (10.0-20.0); Calcium 8.8 mg/dL (8.7-10.4); Carbon Dioxide 23 mmol/L (20-31); Glucose 84 mg/dL (74-106); Total Protein 6.7 g/dL (5.7-8.2)
[2025-04-16 06:32] LABS: Bilirubin, Total 1.5 mg/dL (0.2-1.0); Chloride 106 mmol/L (98-107); Potassium 3.8 mmol/L (3.5-5.1); Sodium 139 mmol/L (136-145)
[2025-04-16 06:33] LABS: Alanine Aminotransferase 337 U/L (7-40); Alkaline Phosphatase 182 U/L (46-116); Blood Urea Nitrogen 6 mg/dL (9-23)
[2025-04-16 06:35] LABS: Anion Gap 10 (5-15)
--- NOTE | 2025-04-16 14:26 | DVH ---
MRCP without contrast HISTORY: r/o choledocholithiasis, right upper quadrant pain COMPARISON: None PROCEDURE: Multiplanar multisequence MRI images were obtained of the abdomen without intravenous contrast. Additional MIPS were obtained of the biliary system. FINDINGS: Large gallstone in the gallbladder measuring 2.8 cm. No tense gallbladder distention. No wall thickening or surrounding inflammatory changes. Cystic duct appears normal. CBD is normal in diameter. No intraductal filling defect to suggest a stone. No intrahepatic biliary duct distention. Unenhanced liver, spleen, pancreas, and adrenal glands are unremarkable. No free fluid. No concerning marrow signal abnormality. IMPRESSION: Gallstones without acute cholecystitis. No choledocholithiasis.
--- NOTE | 2025-04-16 16:05 | DVHPNRES ---
Progress Note Date Seen: Apr 16, 2025 Resident Creating Document: HOME RODRIGUEZ RESIDENT Medical Necessity Reason Pt with a Central, PICC or Fol: No Subjective Review of Systems Patient seen at the bedside. Complains of abdominal pain. MRCP today. Surgery consult pending. Mar Keller is a 35-year-old female with past medical history of gallstones 6 years back, thyroid nodule, hypertension, migraines who came to the hospital with complaints of epigastric pain, shortness of breath, dizziness, tingling around the mouth One day prior. Patient reports that she was driving the car at 8:00 p.m. when she started having these symptoms and immediately came to the hospital because of uncontrollable pain. She describes the pain as sudden in onset, sharp, continuous, radiating to the chest and right neck with no aggravating or relieving factors. PMHx:gallstones 6 years back, thyroid nodule, hypertension, migraines PSHx: Nonrelevant Family history: nonrelevant Social history: 5 pack-year smoking history, stopped 15 years back. Denies alcohol or illicit drug use. Lives with family Home medication: lisinopril,Zepbound Allergic history: no known allergies CONSTITUTIONAL: Fever, night sweats, weight loss, Lymphadenopathy, ecchymoses, fatigue: Negative DERMATOLOGIC: Rash, New/growing/changing skin lesions: Negative HEENT: Vision change, eye pain, Rhinorrhea, sinus pain, epistaxis, dysphagia, odynophagia, globus sensation, Change in hearing, tinnitus, vertigo, otalgia, Dental problems, oral ulcers or lesions: : Negative ENDOCRINE: Weight change, heat or cold intolerance, tremor, insomnia, neck pain or swelling, Polyuria, polydipsia, polyphagia, Abnormal hair growth, change in nails: Negative CARDIOVASCULAR: Chest pain, palpitations, syncope, Edema, cyanosis, claudication, Orthopnea, paroxysmal nocturnal dyspnea: Negative PULMONARY: Shortness of breath, dyspnea with exertion, Cough, hemoptysis, wheezing, chest pain : Negative GI: complains of epigastric pain : Dysuria, frequency, urgency, Urinary incontinence, hematuria, foamy urine, nocturia, Change in libido, erectile dysfunction, Change in menses, dysmenorrhea, dyspaerunia, pelvic pain: : Negative MUSCULOSKELETAL: Joint swelling or pain, muscle pain, back pain: : Negative NEUROLOGIC: Headache, scotoma, Change in smell or taste, change in facial muscles, Muscle weakness, paresthesias, anesthesia, Ataxia, change in speech: Negative PSYCHIATRIC: Depression, anxiety, hallucinations, lois, suicidal/homicidal thoughts, Binging, purging: Negative Objective vital signs Vital Sign Date Time Temp Pulse Resp B/P (MAP) Pulse Ox O2 Delivery O2 Flow Rate FiO2 04/16/25 15:32 63 17 129/81 04/16/25 13:00 97.7 98 97.7 04/16/25 08:00 Room Air* 0 21 Total Intake and Output 04/15/25 04/15/25 04/16/25 15:00 23:00 07:00 Intake Total 811 ml Balance 811 ml medications Current Medications Medications Dose Ordered Sig/Cy Route Start Time Stop Time Status Last Admin Dose Admin Piperacillin Sod/ Tazobactam Sod 100 ml @ 25 mls/hr Q8HR IV 04/15/25 06:50 04/16/25 15:15 25 MLS/HR Morphine Sulfate 1 mg Q6HP PRN IV 04/15/25 02:30 04/16/25 15:32 1 MG Lisinopril 5 mg DAILY PO 04/15/25 10:00 04/16/25 09:58 5 MG Pantoprazole Sodium 40 mg DAILY IV 04/15/25 10:00 04/16/25 09:58 40 MG Sucralfate 1 gm BID@0600,2200 PO 04/15/25 22:00 04/16/25 05:54 1 GM Acetaminophen 650 mg Q8HP PRN PO 04/15/25 22:45 04/16/25 10:02 650 MG Examination General Appearance: Alert, Oriented X3, Cooperative, No acute distress HEENT: Atraumatic, PERRLA, EOMI, Mucous membrane moist/pink Respiratory: Clear to auscultation, Normal air movement Cardiovascular: Regular rate, Normal S1, Normal S2, No murmurs, chest wall tenderness present Abdominal: tenderness in the left upper quadrant Extremities: No clubbing, No cyanosis, No edema, Normal pulses, No tenderness/swelling Skin: No rashes, No breakdown, No significant lesion Neuro: Normal gait, Normal speech, Strength at 5/5 X4 ext, Normal tone, Sensation intact, Cranial nerves 3-12 NL, Reflexes 2+ Psych/Mental Status: Mental status NL, Mood NL laboratory and microbiology Laboratory Tests 04/16/25 05:44 Test 04/16/25 05:44 Range/Units Serum Glucose 84 74-106 mg/dL Microbiology Date/Time Source Procedure Growth Status 04/15/25 01:28 Blood Blood Culture - Preliminary Resulted Problem List/Assessment/Plan Problem List/Assessment/Plan Assessment/Plan Sepsis due to bacteremia Bacteremia due to Symptomatic cholelithiasis IV fluid IV morphine CT abdomen pelvis: Cholelithiasis without sonographic evidence of acute cholecystitis. Consider HIDA scan full liquid diet Surgery consult MRCP Chest pain ruled out ACS EKG no ischemic changes Troponinx3 WNL Essential hypertension Lisinopril 5 mg Thyroid nodule, normothyroid Follow up outpatient with PCP and senior environmental practice leader Migraine Follow up with PCP on discharge Morbid obesity Transaminitis GI prophylaxis: Pantoprazole DVT prophylaxis: SCDs Diet: Full liquid diet Goals of care Full code status Case discussed with Dr. Mullen Plan discussed with: Patient My Orders My Orders Orders - HOME RODRIGUEZ Procedure Category Date Status Time Complete Blood Count LAB 04/17/25 Verified 04:00 Comprehensive LAB 04/17/25 Verified Metabolic Panel 04:00 Date of Service: Apr 16, 2025 Billing Provider: AMALIA ALAMO MD Common Visit Codes: [id number] INP/OBS CARE(HIGH) HOME RODRIGUEZ RESIDENT Apr 16, 2025 16:05
--- NOTE | 2025-04-16 19:10 | DVHCONRES ---
Date Seen: Apr 16, 2025 Resident Creating Document: MAC RIVERA Jr., MD Referring Physician er Reason for Consultation abd. pain History of Present Illness 35-year-old female with past medical history of gallstones 6 years back, thyroid nodule, hypertension, migraines who came to the hospital with complaints of epigastric pain, shortness of breath, dizziness, tingling around the mouth One day prior. Patient reports that she was driving the car at 8:00 p.m. 04/14/2025. when she started having these symptoms and immediately came to the hospital because of uncontrollable pain. She describes the pain as sudden in onset, sharp, continuous, radiating to the chest and right neck with no aggravating or relieving factors. lmp 03/18/2025 pt. has underwent u/s and mrcp consistent gallstones. no evidence of cholecystitis pt. currently tolerating liquid diet without pain. and is asymptomatic however early in the day described left lower quadrant pain Past Medical History gallstone stones, thyroid nodule, hypertension, migraines Past Surgical History none Family History: Appendicitis G8 MOTHER FH: cholecystectomy G8 MOTHER FH: diabetes mellitus G8 MOTHER G8 FATHER FH: gallstones G8 MOTHER FHx: peripheral neuropathy G8 MOTHER Hypertension G8 MOTHER Social History none Allergies: Coded Allergies: NO KNOWN ALLERGIES (Unverified , 03/10/12) Home Meds Reported Medications Tirzepatide (Zepbound) 5 Mg/0.5 Ml Inj, 5 MG SC QWEEKLY for 28 Days, #2 04/16/25 Cholecalciferol (Gnp Vitamin D) 1,000 Unit Tab, 1 TAB PO DAILY for 30 Days, #30 04/16/25 Lisinopril (Lisinopril) 10 Mg Tab, 1 TAB PO DAILY for 30 Days, #30 04/16/25 Current Medications Current Medications Medications (Trade) Dose Ordered Sig/Cy Route PRN Reason Start Time Stop Time Status Last Admin Sucralfate (Carafate Susp) 1 gm BID@0600,2200 PO 04/15/25 22:00 04/16/25 05:54 Acetaminophen (Tylenol Tablet) 650 mg Q8HP PRN PO MILD PAIN (1-3 PAIN SCALE) 04/15/25 22:45 04/16/25 10:02 Baclofen (Liorisal Tablet) 5 mg BID PO 04/16/25 22:00 Review of Systems all systems reviewed otherwise negative Vital Signs Vital Signs Date Time Temp Pulse Resp B/P (MAP) Pulse Ox O2 Delivery O2 Flow Rate FiO2 04/16/25 16:56 74 16 143/87 04/16/25 16:17 97.8 96 97.8 04/16/25 08:00 Room Air* 0 21 Physical Exam pt. appears well sitting eating liquid dinner upon my arrival abd. soft non tender non distended. Labs/Diagnostic Data Labs Test 04/16/25 05:44 04/15/25 10:45 04/15/25 01:15 04/15/25 00:50 Range/Units White Blood Count 10.9 H 4.4-10.8 10^3/uL Red Blood Count 4.67 4.0-5.20 10^6/uL Hemoglobin 13.0 12.2-16.2 g/dL Hematocrit 39.2 36.0-46.0 % Mean Corpuscular Volume 83.8 80.0-100.0 fL Mean Corpuscular Hemoglobin 27.9 L 28.0-32.0 pg Mean Corpuscular Hemoglobin Concent 33.2 32.0-36.0 g/dL Red Cell Distribution Width 15.4 H 11.8-14.3 % Platelet Count 322 140-450 10^3/uL Mean Platelet Volume 7.4 6.9-10.8 fL Neutrophils (%) (Auto) 73.1 37.0-80.0 % Lymphocytes (%) (Auto) 16.0 10.0-50.0 % Monocytes (%) (Auto) 7.2 0.0-12.0 % Eosinophils (%) (Auto) 3.1 0.0-7.0 % Basophils (%) (Auto) 0.6 0.0-2.0 % Neutrophils # (Auto) 8.0 1.6-8.6 10 ^3/uL Lymphocytes # (Auto) 1.7 0.4-5.4 10 ^3/uL Monocytes # (Auto) 0.8 0-1.3 10 ^3/uL Eosinophils # (Auto) 0.3 0-0.8 10 ^3/uL Basophils # (Auto) 0.1 0-0.2 10 ^3/uL Nucleated Red Blood Cells 0.0 % Sodium Level 139 136-145 mmol/L Potassium Level 3.8 3.5-5.1 mmol/L Chloride Level 106 98-107 mmol/L Carbon Dioxide Level 23 20-31 mmol/L Anion Gap 10 5-15 Blood Urea Nitrogen 6 L 9-23 mg/dL Creatinine 0.67 0.550-1.02 mg/dL Glomerular Filtration Rate Calc 115 >90 mL/min BUN/Creatinine Ratio 9.0 L 10.0-20.0 Serum Glucose 84 74-106 mg/dL Calcium Level 8.8 8.7-10.4 mg/dL Total Bilirubin 1.5 H 0.2-1.0 mg/dL Aspartate Amino Transferase (AST) 169 H 13-40 U/L Alanine Aminotransferase (ALT) 337 H 7-40 U/L Alkaline Phosphatase 182 H 46-116 U/L Total Protein 6.7 5.7-8.2 g/dL Albumin 3.9 3.2-4.8 g/dL Prothrombin Time 10.4 9.3-11.8 sec Prothrombin Time INR 0.98 0.9-1.15 Activated Partial Thromboplast Time 33.1 24.5-34.5 SEC Thyroid Stimulating Hormone (TSH) 3.26 0.55-4.78 uIU/mL Urine Color Yellow Yellow Urine Clarity Turbid H Clear Urine pH 8.5 5.0-9.0 Urine Specific [place] 1.027 1.001-1.035 Urine Protein 1+ H Negative Urine Ketones Negative Negative Urine Blood Negative Negative /uL Urine Nitrite Negative Negative Urine Bilirubin Negative Negative Urine Urobilinogen 2 H Negative mg/dL Urine Leukocyte Esterase Negative Negative /uL Urine RBC 8 0 - 4 /hpf Urine Microscopic WBC < 1 0-5 /HPF Urine Squamous Epithelial Cells Few <5 /hpf Urine Amorphous Crystals Few None Seen /hpf Urine Bacteria None seen None Seen /hpf Urine Glucose Normal Normal mg/dL Urine Test Negative Negative Urine Opiates Screen Neg NEGATIVE Urine Fentanyl Screen Neg NEGATIVE Urine Barbiturates Screen Neg NEGATIVE Urine Phencyclidine Screen Neg NEGATIVE Urine Amphetamines Screen Neg NEGATIVE Urine Benzodiazepines Screen Neg NEGATIVE Urine Cocaine Screen Neg NEGATIVE Urine Cannabinoids Screen Neg NEGATIVE Lactic Acid Level 1.6 0.4-2.0 mmol/L Troponin I High Sensitivity < 3 L </=34 ng/L Test 04/14/25 20:45 Range/Units Lipase 42 12-53 U/L Microbiology Date/Time Source Procedure Growth Status 04/15/25 01:28 Blood Blood Culture - Preliminary Resulted Assessment 35yo admitted with epigastric and substernal pain. wbc elevated trending down, with elevated lft, us/mrcp +gallstones rec. GI Evaluation CT abdomen pending consider advancing diet Plan/Recommendation 35yo admitted with epigastric and substernal pain. wbc elevated trending down, with elevated lft, us/mrcp +gallstones rec. GI Evaluation CT abdomen pending consider advancing diet Plan discussed with: Patient MAC RIVERA Jr., MD Apr 16, 2025 19:10
[2025-04-16] MEDS: BACLOFEN 10 MG TAB PO SCH (21:47)
[2025-04-17 05:00] VITALS: BP 122/58; PULSE 70; RESP 18; TEMP 98.4; O2SAT 99
[2025-04-17 05:55] LABS: Hematocrit 37.6 % (36.0-46.0); Hemoglobin 12.5 g/dL (12.2-16.2); Mean Corpuscular Hemoglobin 27.5 pg (28.0-32.0); Mean Corpuscular Volume 83.0 fL (80.0-100.0); Nucleated Red Blood Cells % 0.1 %
[2025-04-17 06:12] LABS: Albumin 3.4 g/dL (3.2-4.8); Anion Gap 9 (5-15); BUN/Creatinine Ratio 10.4 (10.0-20.0); Bilirubin, Total 0.7 mg/dL (0.2-1.0); Carbon Dioxide 25 mmol/L (20-31); Glucose 89 mg/dL (74-106); Potassium 4.0 mmol/L (3.5-5.1); Sodium 142 mmol/L (136-145); Total Protein 5.9 g/dL (5.7-8.2)
[2025-04-17 06:22] LABS: Alanine Aminotransferase 193 U/L (7-40); Alkaline Phosphatase 131 U/L (46-116); Blood Urea Nitrogen 7 mg/dL (9-23); Calcium 8.6 mg/dL (8.7-10.4); Chloride 108 mmol/L (98-107)
[2025-04-17 08:54] VITALS: BP 108/65; PULSE 74; RESP 16; TEMP 98.1; O2SAT 96
--- NOTE | 2025-04-17 09:50 | DVH ---
CLINICAL HISTORY: Left lower quadrant pain TECHNIQUE: CT of the abdomen and pelvis was performed without IV contrast. This exam was performed according to our departmental dose optimization program. Up-to-date CT equipment and radiation dose reduction techniques are utilized as appropriate. CTDI 27 DLP 1400 COMPARISON: None FINDINGS: Abdomen/Pelvis: The spleen, pancreas, adrenal glands, liver, kidneys, and bladder are grossly unremarkable. There is a 2.6 cm gallstone. There are numerous uterine masses, compatible with uterine fibroids The abdominal aorta is normal in course and caliber. There are no significant atherosclerotic calcifications. There is no free intraperitoneal air or fluid. There is no enlarged abdominal pelvic lymph node. There is no bowel wall thickening or dilatation. The appendix is normal. There is a small fat containing umbilical hernia. Other: The imaged lower thorax is unremarkable. No acute osseous abnormality is evident. IMPRESSION: No acute noncontrast CT abnormality in the abdomen / pelvis. Fibroid uterus. 2.6 cm gallstone.
[2025-04-17 13:00] VITALS: BP 132/87; PULSE 72; RESP 17; TEMP 98; O2SAT 97
[2025-04-17] MEDS: CHOLECALCIFEROL (VITD3) 1,000UNIT=25mCg TAB PO SCH (14:34)
[2025-04-17] MEDS: SODIUM CHLORIDE 0.9% 500 ML IV ONE (14:35)
--- NOTE | 2025-04-17 15:56 | DVHPNRES ---
Progress Note Date Seen: Apr 17, 2025 Resident Creating Document: HOME RODRIGUEZ Medical Necessity Reason Pt with a Central, PICC or Fol: No Subjective Review of Systems Patient seen at bedside. Complains of abdominal pain. CT abdominal done. Repeat cultures and baclofen ordered for. Mar Keller is a 35-year-old female with past medical history of gallstones 6 years back, thyroid nodule, hypertension, migraines who came to the hospital with complaints of epigastric pain, shortness of breath, dizziness, tingling around the mouth One day prior. Patient reports that she was driving the car at 8:00 p.m. when she started having these symptoms and immediately came to the hospital because of uncontrollable pain. She describes the pain as sudden in onset, sharp, continuous, radiating to the chest and right neck with no aggravating or relieving factors. PMHx:gallstones 6 years back, thyroid nodule, hypertension, migraines PSHx: Nonrelevant Family history: nonrelevant Social history: 5 pack-year smoking history, stopped 15 years back. Denies alcohol or illicit drug use. Lives with family Home medication: lisinopril,Zepbound Allergic history: no known allergies CONSTITUTIONAL: Fever, night sweats, weight loss, Lymphadenopathy, ecchymoses, fatigue: Negative DERMATOLOGIC: Rash, New/growing/changing skin lesions: Negative HEENT: Vision change, eye pain, Rhinorrhea, sinus pain, epistaxis, dysphagia, odynophagia, globus sensation, Change in hearing, tinnitus, vertigo, otalgia, Dental problems, oral ulcers or lesions: : Negative ENDOCRINE: Weight change, heat or cold intolerance, tremor, insomnia, neck pain or swelling, Polyuria, polydipsia, polyphagia, Abnormal hair growth, change in nails: Negative CARDIOVASCULAR: Chest pain, palpitations, syncope, Edema, cyanosis, claudication, Orthopnea, paroxysmal nocturnal dyspnea: Negative PULMONARY: Shortness of breath, dyspnea with exertion, Cough, hemoptysis, wheezing, chest pain : Negative GI: complains of epigastric pain : Dysuria, frequency, urgency, Urinary incontinence, hematuria, foamy urine, nocturia, Change in libido, erectile dysfunction, Change in menses, dysmenorrhea, dyspaerunia, pelvic pain: : Negative MUSCULOSKELETAL: Joint swelling or pain, muscle pain, back pain: : Negative NEUROLOGIC: Headache, scotoma, Change in smell or taste, change in facial muscles, Muscle weakness, paresthesias, anesthesia, Ataxia, change in speech: Negative PSYCHIATRIC: Depression, anxiety, hallucinations, lois, suicidal/homicidal thoughts, Binging, purging: Negative Objective vital signs Vital Sign Date Time Temp Pulse Resp B/P (MAP) Pulse Ox O2 Delivery O2 Flow Rate FiO2 04/17/25 14:49 72 17 132/87 04/17/25 13:00 98.0 97 98.0 04/17/25 08:00 Room Air* 0 21 Total Intake and Output 04/16/25 04/16/25 04/17/25 14:59 22:59 06:59 Intake Total 100 ml 100 ml 300 ml Balance 100 ml 100 ml 300 ml medications Current Medications Medications Dose Ordered Sig/Cy Route Start Time Stop Time Status Last Admin Dose Admin Piperacillin Sod/ Tazobactam Sod 100 ml @ 25 mls/hr Q8HR IV 04/15/25 06:50 04/17/25 14:35 25 MLS/HR Morphine Sulfate 1 mg Q6HP PRN IV 04/15/25 02:30 04/17/25 14:49 1 MG Lisinopril 5 mg DAILY PO 04/15/25 10:00 04/17/25 10:00 5 MG Pantoprazole Sodium 40 mg DAILY IV 04/15/25 10:00 04/17/25 10:13 40 MG Sucralfate 1 gm BID@0600,2200 PO 04/15/25 22:00 04/17/25 05:44 1 GM Acetaminophen 650 mg Q8HP PRN PO 04/15/25 22:45 04/16/25 10:02 650 MG Baclofen 5 mg BID PO 04/16/25 22:00 04/17/25 10:12 5 MG Cholecalciferol 1,000 unit DAILY PO 04/17/25 14:15 04/17/25 14:34 1,000 UNIT Examination General Appearance: Alert, Oriented X3, Cooperative, No acute distress HEENT: Atraumatic, PERRLA, EOMI, Mucous membrane moist/pink Respiratory: Clear to auscultation, Normal air movement Cardiovascular: Regular rate, Normal S1, Normal S2, No murmurs, chest wall tenderness present Abdominal: tenderness in the left upper quadrant Extremities: No clubbing, No cyanosis, No edema, Normal pulses, No tenderness/swelling Skin: No rashes, No breakdown, No significant lesion Neuro: Normal gait, Normal speech, Strength at 5/5 X4 ext, Normal tone, Sensation intact, Cranial nerves 3-12 NL, Reflexes 2+ Psych/Mental Status: Mental status NL, Mood NL laboratory and microbiology Laboratory Tests 04/17/25 05:07 Test 04/17/25 05:07 Range/Units Serum Glucose 89 74-106 mg/dL Microbiology Date/Time Source Procedure Growth Status 04/15/25 01:28 Blood Blood Culture - Preliminary Resulted Problem List/Assessment/Plan Problem List/Assessment/Plan Assessment/Plan Severe Sepsis due to bacteremia Bacteremia due to Symptomatic cholelithiasis/acute gastroenteritis Transaminitis Gastritis IV fluid IV morphine CT abdomen pelvis: Cholelithiasis without sonographic evidence of acute cholecystitis. Consider HIDA scan full liquid diet Surgery consult MRCP Baclofen Repeat cultures Blood culture positive for Gram-positive bacteria CT abdomen IV Protonix Follow liver function test Chest pain ruled out ACS EKG no ischemic changes Troponinx3 WNL Essential hypertension Lisinopril 5 mg Thyroid nodule, normothyroid Follow up outpatient with PCP and rn visiting Migraine Follow up with PCP on discharge Morbid obesity Consult for 11 minutes the importance of weight loss. Fibroid uterus Follow up with PCP on discharge GI prophylaxis: Pantoprazole DVT prophylaxis: SCDs Diet: Full liquid diet Goals of care Full code status Case discussed with Dr. Mullen Plan discussed with: Patient My Orders My Orders Orders - HOME RODRIGUEZ RESIDENT Procedure Category Date Status Time Blood Culture MINA 04/17/25 In Process 06:58 Baclofen Tablet PHA 04/16/25 In Process (Liorisal Tablet) 22:00 Ct Ab Pel Wo Con-No CT 04/17/25 Resulted Oral Or Iv 07:00 * Gi Dvh Proof Clerk CONS 04/17/25 Transmitted 12:48 Mechanical Soft Diet DIET 04/17/25 Transmitted Lunch Cholecalciferol PHA 04/17/25 In Process Tablet (Vitamin D3 14:15 Complete Blood Count LAB 04/18/25 Verified 04:00 Comprehensive LAB 04/18/25 Verified Metabolic Panel 04:00 Date of Service: Apr 17, 2025 Billing Provider: AMALIA ALAMO MD Common Visit Codes: [id number] INP/OBS CARE(HIGH) HOME RODRIGUEZ RESIDENT Apr 17, 2025 15:56
[2025-04-17 16:54] VITALS: BP 127/90; PULSE 72; RESP 18; TEMP 98.2; O2SAT 95
[2025-04-17 20:00] VITALS: PULSE 81; RESP 17; O2SAT 96
[2025-04-17 21:00] VITALS: BP 122/79; PULSE 81; RESP 17; TEMP 98.2; O2SAT 96
[2025-04-18 01:00] VITALS: BP 115/66; PULSE 72; RESP 17; TEMP 97.9; O2SAT 96
[2025-04-18 05:00] VITALS: BP 108/70; PULSE 73; RESP 19; TEMP 97.9; O2SAT 95
[2025-04-18 07:28] LABS: Hematocrit 39.1 % (36.0-46.0); Hemoglobin 13.2 g/dL (12.2-16.2); Mean Corpuscular Hemoglobin 28.0 pg (28.0-32.0); Mean Corpuscular Volume 83.0 fL (80.0-100.0); Nucleated Red Blood Cells % 0.0 %
[2025-04-18 07:44] LABS: Albumin 3.8 g/dL (3.2-4.8); Anion Gap 10 (5-15); BUN/Creatinine Ratio 14.5 (10.0-20.0); Bilirubin, Total 0.7 mg/dL (0.2-1.0); Blood Urea Nitrogen 10 mg/dL (9-23); Calcium 8.9 mg/dL (8.7-10.4); Carbon Dioxide 25 mmol/L (20-31); Chloride 106 mmol/L (98-107); Glucose 93 mg/dL (74-106); Potassium 4.2 mmol/L (3.5-5.1); Sodium 141 mmol/L (136-145); Total Protein 6.4 g/dL (5.7-8.2)
[2025-04-18 07:48] LABS: Alanine Aminotransferase 154 U/L (7-40); Alkaline Phosphatase 130 U/L (46-116)
[2025-04-18 09:00] VITALS: BP 130/87; PULSE 84; RESP 20; TEMP 97.4; O2SAT 98
[2025-04-18] MEDS: BISMUTH SUBSALICYLATE 262MG/15ml ORAL Susp PO PRN (10:35)
[2025-04-18] MEDS ORDERED: METR-344 PO (13:04)
[2025-04-18] MEDS ORDERED: AUG875T PO (13:04)
[2025-04-18] MEDS ORDERED: PANT40TA2 PO (13:04)
[2025-04-18] MEDS ORDERED: BACL20TA PO (13:04)
--- NOTE | 2025-04-18 13:45 | DVHDSRES ---
Discharge Summary Date of Admission Resident Creating Document: HOME RODRIGUEZ RESIDENT Apr 15, 2025 at 01:51 Date of Discharge: Apr 18, 2025 Labs/Diagnostic Data: Laboratory Results Test 04/18/25 07:05 04/15/25 10:45 04/15/25 01:15 04/15/25 00:50 White Blood Count 9.8 10^3/uL (4.4-10.8) Red Blood Count 4.71 10^6/uL (4.0-5.20) Hemoglobin 13.2 g/dL (12.2-16.2) Hematocrit 39.1 % (36.0-46.0) Mean Corpuscular Volume 83.0 fL (80.0-100.0) Mean Corpuscular Hemoglobin 28.0 pg (28.0-32.0) Mean Corpuscular Hemoglobin Concent 33.7 g/dL (32.0-36.0) Red Cell Distribution Width 15.0 % (11.8-14.3) Platelet Count 333 10^3/uL (140-450) Mean Platelet Volume 7.2 fL (6.9-10.8) Neutrophils (%) (Auto) 68.8 % (37.0-80.0) Lymphocytes (%) (Auto) 20.9 % (10.0-50.0) Monocytes (%) (Auto) 6.9 % (0.0-12.0) Eosinophils (%) (Auto) 2.6 % (0.0-7.0) Basophils (%) (Auto) 0.8 % (0.0-2.0) Neutrophils # (Auto) 6.8 10 ^3/uL (1.6-8.6) Lymphocytes # (Auto) 2.0 10 ^3/uL (0.4-5.4) Monocytes # (Auto) 0.7 10 ^3/uL (0-1.3) Eosinophils # (Auto) 0.3 10 ^3/uL (0-0.8) Basophils # (Auto) 0.1 10 ^3/uL (0-0.2) Nucleated Red Blood Cells 0.0 % Sodium Level 141 mmol/L (136-145) Potassium Level 4.2 mmol/L (3.5-5.1) Chloride Level 106 mmol/L (98-107) Carbon Dioxide Level 25 mmol/L (20-31) Anion Gap 10 (5-15) Blood Urea Nitrogen 10 mg/dL (9-23) Creatinine 0.69 mg/dL (0.550-1.02) Glomerular Filtration Rate Calc 115 mL/min (>90) BUN/Creatinine Ratio 14.5 (10.0-20.0) Serum Glucose 93 mg/dL (74-106) Calcium Level 8.9 mg/dL (8.7-10.4) Total Bilirubin 0.7 mg/dL (0.2-1.0) Aspartate Amino Transferase (AST) 33 U/L (13-40) Alanine Aminotransferase (ALT) 154 U/L (7-40) Alkaline Phosphatase 130 U/L (46-116) Total Protein 6.4 g/dL (5.7-8.2) Albumin 3.8 g/dL (3.2-4.8) Prothrombin Time 10.4 sec (9.3-11.8) Prothrombin Time INR 0.98 (0.9-1.15) Activated Partial Thromboplast Time 33.1 SEC (24.5-34.5) Thyroid Stimulating Hormone (TSH) 3.26 uIU/mL (0.55-4.78) Urine Color Yellow (Yellow) Urine Clarity Turbid (Clear) Urine pH 8.5 (5.0-9.0) Urine Specific [place] 1.027 (1.001-1.035) Urine Protein 1+ (Negative) Urine Ketones Negative (Negative) Urine Blood Negative /uL (Negative) Urine Nitrite Negative (Negative) Urine Bilirubin Negative (Negative) Urine Urobilinogen 2 mg/dL (Negative) Urine Leukocyte Esterase Negative /uL (Negative) Urine RBC 8 /hpf (0 - 4) Urine Microscopic WBC < 1 /HPF (0-5) Urine Squamous Epithelial Cells Few /hpf (<5) Urine Amorphous Crystals Few /hpf (None Seen) Urine Bacteria None seen /hpf (None Seen) Urine Glucose Normal mg/dL (Normal) Urine Test Negative (Negative) Urine Opiates Screen Neg (NEGATIVE) Urine Fentanyl Screen Neg (NEGATIVE) Urine Barbiturates Screen Neg (NEGATIVE) Urine Phencyclidine Screen Neg (NEGATIVE) Urine Amphetamines Screen Neg (NEGATIVE) Urine Benzodiazepines Screen Neg (NEGATIVE) Urine Cocaine Screen Neg (NEGATIVE) Urine Cannabinoids Screen Neg (NEGATIVE) Lactic Acid Level 1.6 mmol/L (0.4-2.0) Troponin I High Sensitivity < 3 ng/L (</=34) Test 04/14/25 20:45 Lipase 42 U/L (12-53) Other Laboratory Tests 04/18/25 07:05 Brief Hx & Hospital Course: Mar Keller is a 35-year-old female with past medical history of gallstones 6 years back, thyroid nodule, hypertension, migraines who came to the hospital with complaints of epigastric pain, shortness of breath, dizziness, tingling around the mouth One day prior. Patient reports that she was driving the car at 8:00 p.m. when she started having these symptoms and immediately came to the hospital because of uncontrollable pain. She describes the pain as sudden in onset, sharp, continuous, radiating to the chest and right neck with no aggravating or relieving factors. Labs revealed leukocytosis, Lactic acidosis, hypocalcemia, elevated total bilirubin and transaminitis. Gallbladder ultrasound And MRCP revealed cholelithiasis. CT abdomen revealed fibroid uterus and 2.6 cm gallstone. Patient was treated with antibiotics, pain killers. Surgery was consulted. During the course of hospitalization the patient improved clinically and is hence being discharged. Condition at Discharge: Fair Final Diagnosis/Problems List Severe Sepsis due to bacteremia Bacteremia due to Symptomatic cholelithiasis/acute gastroenteritis Transaminitis Morbid obesity Gastritis Fibroid uterus Chest pain ruled out ACS Essential hypertension Thyroid nodule, normothyroid Migraine Discharge Disposition: Home Discharge Instruct/Medications Diet: Regular Diet comment: DASH diet Activity: No Restrictions, As Tolerated Follow Up/Referral: Follow up with PCP in 7 days Follow up with OBGYN in 7 days for fibroid, dysmenorrhea Follow up with surgeon for cholelithiasis Medications: As per EHR Scheduled Amoxicillin & Pot Clavulanate (Augmentin Tablet), 875 MG PO BID Baclofen (Baclofen), 20 MG PO BID Cholecalciferol (Gnp Vitamin D), 1 TAB PO DAILY, (Reported) Lisinopril (Lisinopril), 1 TAB PO DAILY, (Reported) Metronidazole (Flagyl), 500 MG PO TID Pantoprazole Sodium Sesquihydr (Protonix), 40 MG PO DAILY Tirzepatide (Zepbound), 5 MG SC QWEEKLY, (Reported) Discharge Statement: "Patient was advised to return to the ER or call 911 if any headaches, dizziness, shortness of breath, chest pain, abdominal pain, bleeding, fevers, or worsening of medical condition. Patient was counseled about treatment plan, medications, possible side effects, patientverbalized understanding. All questions were answered to the best of my ability. This discharge took greater then 30 minutes in planning, reviewing documentation, counseling the patient, and discussing with other team members." ASSESSMENT ASSESSMENT Assessment Symptomatic cholelithiasis Visit Coding STANDARD RES Billing Provider: JOYCELYN VILCHIS DO Date of Service if different f: Apr 18, 2025 Common Visit Codes: [id number] DISCH DAY >30min HOME RODRIGUEZ RESIDENT Apr 18, 2025 13:45 JOYCELYN VILCHIS DO Apr 20, 2025 23:27
--- NOTE | 2025-04-18 14:04 | DVHINCON2 ---
GI Consult Consult Note GI consult note Date of Consultation: 04/18/2025 Chief Complaint: Abdominal pain Referring Physician: Dr. Stephenson H&P: 35-year-old female with past medical history of gallstone, hypertension admitted with complains of abdominal pain. Patient had severe abdominal pain for the past four days mostly in the epigastric area radiating into her right chest and neck also. Decreased abdominal pain at this time. Feels like slight pressure in her epigastric area. No nausea or vomiting denies hematemesis. Denies symptoms of GERD in the past Patient is has started her menstrual cycle and feels like she is having some cramping pain at this time Patient has been seen by surgery also Past Medical History: Gallbladder stones, HTN, thyroid nodule Past Surgical History: Social History: NO smoking, drinking ETOH and use of illegal drugs. Family History: Noncontributory Review of Systems: Constitutional: no fever, chill, weight loss HEENT: no eye pain, no hearing loss, no oral lesion, no scleral icterus Heart: no chest pain, no chest pressure Lung: no cough, no dyspnea with exertion Abdomen: see HPI Physical exam: General: NAD, AAOX3 Chest: lung fonseca clear to auscultation Heart: RRR, no murmur Abdomen: non-distended, no tenderness to palpation, +BS Labs: Labs Test 04/18/25 07:05 04/15/25 10:45 04/15/25 01:15 04/15/25 00:50 Range/Units White Blood Count 9.8 4.4-10.8 10^3/uL Red Blood Count 4.71 4.0-5.20 10^6/uL Hemoglobin 13.2 12.2-16.2 g/dL Hematocrit 39.1 36.0-46.0 % Mean Corpuscular Volume 83.0 80.0-100.0 fL Mean Corpuscular Hemoglobin 28.0 28.0-32.0 pg Mean Corpuscular Hemoglobin Concent 33.7 32.0-36.0 g/dL Red Cell Distribution Width 15.0 H 11.8-14.3 % Platelet Count 333 140-450 10^3/uL Mean Platelet Volume 7.2 6.9-10.8 fL Neutrophils (%) (Auto) 68.8 37.0-80.0 % Lymphocytes (%) (Auto) 20.9 10.0-50.0 % Monocytes (%) (Auto) 6.9 0.0-12.0 % Eosinophils (%) (Auto) 2.6 0.0-7.0 % Basophils (%) (Auto) 0.8 0.0-2.0 % Neutrophils # (Auto) 6.8 1.6-8.6 10 ^3/uL Lymphocytes # (Auto) 2.0 0.4-5.4 10 ^3/uL Monocytes # (Auto) 0.7 0-1.3 10 ^3/uL Eosinophils # (Auto) 0.3 0-0.8 10 ^3/uL Basophils # (Auto) 0.1 0-0.2 10 ^3/uL Nucleated Red Blood Cells 0.0 % Sodium Level 141 136-145 mmol/L Potassium Level 4.2 3.5-5.1 mmol/L Chloride Level 106 98-107 mmol/L Carbon Dioxide Level 25 20-31 mmol/L Anion Gap 10 5-15 Blood Urea Nitrogen 10 9-23 mg/dL Creatinine 0.69 0.550-1.02 mg/dL Glomerular Filtration Rate Calc 115 >90 mL/min BUN/Creatinine Ratio 14.5 10.0-20.0 Serum Glucose 93 74-106 mg/dL Calcium Level 8.9 8.7-10.4 mg/dL Total Bilirubin 0.7 0.2-1.0 mg/dL Aspartate Amino Transferase (AST) 33 13-40 U/L Alanine Aminotransferase (ALT) 154 H 7-40 U/L Alkaline Phosphatase 130 H 46-116 U/L Total Protein 6.4 5.7-8.2 g/dL Albumin 3.8 3.2-4.8 g/dL Prothrombin Time 10.4 9.3-11.8 sec Prothrombin Time INR 0.98 0.9-1.15 Activated Partial Thromboplast Time 33.1 24.5-34.5 SEC Thyroid Stimulating Hormone (TSH) 3.26 0.55-4.78 uIU/mL Urine Color Yellow Yellow Urine Clarity Turbid H Clear Urine pH 8.5 5.0-9.0 Urine Specific [place] 1.027 1.001-1.035 Urine Protein 1+ H Negative Urine Ketones Negative Negative Urine Blood Negative Negative /uL Urine Nitrite Negative Negative Urine Bilirubin Negative Negative Urine Urobilinogen 2 H Negative mg/dL Urine Leukocyte Esterase Negative Negative /uL Urine RBC 8 0 - 4 /hpf Urine Microscopic WBC < 1 0-5 /HPF Urine Squamous Epithelial Cells Few <5 /hpf Urine Amorphous Crystals Few None Seen /hpf Urine Bacteria None seen None Seen /hpf Urine Glucose Normal Normal mg/dL Urine Test Negative Negative Urine Opiates Screen Neg NEGATIVE Urine Fentanyl Screen Neg NEGATIVE Urine Barbiturates Screen Neg NEGATIVE Urine Phencyclidine Screen Neg NEGATIVE Urine Amphetamines Screen Neg NEGATIVE Urine Benzodiazepines Screen Neg NEGATIVE Urine Cocaine Screen Neg NEGATIVE Urine Cannabinoids Screen Neg NEGATIVE Lactic Acid Level 1.6 0.4-2.0 mmol/L Troponin I High Sensitivity < 3 L </=34 ng/L Test 04/14/25 20:45 Range/Units Lipase 42 12-53 U/L Microbiology Date/Time Source Procedure Growth Status 04/17/25 07:44 Blood Blood Culture - Preliminary NO GROWTH AFTER 24 HOURS OF INCUBATION. Resulted Imaging: Abdominal ultrasound IMPRESSION: 1. Cholelithiasis without sonographic evidence of acute cholecystitis. MRCP IMPRESSION: Gallstones without acute cholecystitis. No choledocholithiasis. CT abdomen pelvis IMPRESSION: No acute noncontrast CT abnormality in the abdomen / pelvis. Fibroid uterus. 2.6 cm gallstone. Assessment: Cholelithiasis Transaminitis Plan: Discussed with Dr. Welsh Protonix and Carafate Probiotic Follow-up with outpatient surgery per surgical recommendations Outpatient GI follow-up as needed Date of Service: Apr 18, 2025 Billing Provider: KIRBY HOFFMANN Common Visit Codes: CONSULT ONLY Consultation Codes: [id number] CONSULT <60MIN KIRBY HOFFMANN Apr 18, 2025 14:04
[2025-04-18 14:46] VITALS: BP 102/67; TEMP 36.3
== END 2025-04-18 15:30 | disposition home or self-care (01) | DRG 720 ==
LOC: ER 20:28 → OVERFLOW 04-15 01:51 → EAST 04-16 16:16
PROVIDERS: ADMIT Internal Medicine; ATTEND Internal Medicine
DX: A41.9 Sepsis, unspecified organism (principal); D25.9 Leiomyoma of uterus, unspecified; E04.1 Nontoxic single thyroid nodule; E66.01 Morbid (severe) obesity due to excess calories; I10 Essential (primary) hypertension; G43.919 Migraine, unspecified, intractable, without status migrainosus; K29.70 Gastritis, unspecified, without bleeding; K52.9 Noninfective gastroenteritis and colitis, unspecified; R74.01 Elevation of levels of liver transaminase levels; K80.20 Calculus of gallbladder without cholecystitis without obstruction; Z68.42 Body mass index [BMI] 45.0-49.9, adult; Z82.49 Family history of ischemic heart disease and other diseases of the circulatory system; Z83.3 Family history of diabetes mellitus
CPT/HCPCS: 36415; 71045; 74176; 74181; 76705; 80053; 80307; 81001; 81025; 83605; 83690; 84443; 84484; 85025; 85610; 85730; 87040; 87076; 93005; G0378; J2405; J2470; J2543